=== PATIENT | female | born 1960 | race Hispanic/Latino ===

== ENCOUNTER → 2022-11-29 | Day surgery (SDC) | payer OTHER ==
[~2022-11-29] MED LIST: FENTANYL CITRATE/PF 100MCG/2 ML INJ ONE; LIDOCAINE HCL 2% LOCAL INJ 5 ML SDV VIAL INJ ONE; MAGNESIUM OXID400 MG PO; OMEGA 3 1,0001 EACH PO; ONDANSETRON HCL INJ 2MG/ML 2ML 2 MG/ML VIAL ONE; OSTEO BI-FLEX1 EAC2 PO; PROPOFOL IV EMULSION 10 MG/ML 50 ML VIAL IV ONE; VIT C PO; VIT D3 PO; VIT E PO
[2022-11-29 08:50] VITALS: BP 121/79; PULSE 64; RESP 14; O2SAT 99
== END | disposition home or self-care (01) ==
LOC: OR 08:08
PROVIDERS: ATTEND Internal Medicine Gastroenterology
DX: Z12.11 Encounter for screening for malignant neoplasm of colon (principal); D12.2 Benign neoplasm of ascending colon; Q27.39 Arteriovenous malformation, other site; K57.30 Diverticulosis of large intestine without perforation or abscess without bleeding; K64.8 Other hemorrhoids; K76.0 Fatty (change of) liver, not elsewhere classified; N20.0 Calculus of kidney; Z88.6 Allergy status to analgesic agent; Z01.810 Encounter for preprocedural cardiovascular examination
CPT/HCPCS: 45380; 45385; 93005; J2405; J3010; 45378; J2001

== ENCOUNTER → 2024-05-06 | Outpatient (REF) | payer OTHER ==
[~2024-05-06] MED LIST changes: -FENTANYL CITRATE/PF 100MCG/2 ML INJ ONE; -LIDOCAINE HCL 2% LOCAL INJ 5 ML SDV VIAL INJ ONE; -ONDANSETRON HCL INJ 2MG/ML 2ML 2 MG/ML VIAL ONE; -PROPOFOL IV EMULSION 10 MG/ML 50 ML VIAL IV ONE
== END ==
LOC: US 10:55
PROVIDERS: ATTEND Nurse Practitioner
DX: K59.09 Other constipation (principal); K64.4 Residual hemorrhoidal skin tags
CPT/HCPCS: 76700